=== PATIENT | female | born 2000 | race Caucasian/White ===

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

== ENCOUNTER 2021-08-21 07:14 | Emergency (ER) | payer SELFPAY ==
[2021-08-21] MEDS ORDERED: Sodium Chloride 0.9% 1,000 ML IV ONE (07:29)
[2021-08-21] MEDS ORDERED: Morphine 4 MG/ML VIAL IVPUSH ONE (07:29)
[2021-08-21] MEDS ORDERED: Ondansetron 4 MG/2 ML SDV IVPUSH ONE (07:29)
[2021-08-21] MEDS ORDERED: Ketorolac 30 MG/ML SDV IVPUSH ONE (07:29)
[2021-08-21 08:36] LABS: BLOOD UREA NITROGEN,BUN 8 mg/dL (7.0-18.0); CARBON DIOXIDE,CO2 23.3 mmol/L (21.0-32.0); CHLORIDE,CL 106 mmol/L (98-107); GLUCOSE RANDOM 98 mg/dL (74-106); POTASSIUM,K 3.5 mmol/L (3.5-5.1); SODIUM,NA 140 mmol/L (136-145)
[2021-08-21 09:35] VITALS: PULSE 57
[2021-08-21 10:08] VITALS: BP 90/49
== END 2021-08-21 10:09 | disposition home or self-care (01) ==
LOC: MW.ED 07:14
DX: N80.9 Endometriosis, unspecified (principal)
CPT/HCPCS: 36415; 80053; 81001; 81025; 85025; 96374; 96375; 99284; J1885; J2270; J2405; J7030

== ENCOUNTER 2022-09-02 12:38 | Emergency (ER) | payer SELFPAY | END 2022-09-02 13:16 | disposition left against medical advice (07) | LOC: MW.ED 12:38 | DX: Z53.21 Procedure and treatment not carried out due to patient leaving prior to being seen by health care provider (principal) ==

== ENCOUNTER 2022-09-17 06:08 | Day surgery (SDC) | payer SELFPAY ==
[2022-09-17] MEDS ORDERED: Scopolamine 1.5 MG Transdermal Patch TOP ONE (06:30)
[2022-09-17] MEDS ORDERED: Lactated Ringers 1,000 ML IV SCH (06:30)
[2022-09-17] MEDS ORDERED: Ropivacaine 0.5% 5 MG/ML 30 ML SDV ONE (07:20)
[2022-09-17] MEDS ORDERED: Famotidine 20 MG/2 ML SDV ONE (07:21)
[2022-09-17] MEDS ORDERED: propofoL 50 ML ONE (07:29)
[2022-09-17] MEDS ORDERED: fentaNYL 250 MCG/5 ML SDV ONE (07:30)
[2022-09-17] MEDS ORDERED: Propofol 200 MG/20 ML SDV ONE ×2 (07:30→09:10)
[2022-09-17] MEDS ORDERED: Albuterol 0.083% 2.5 MG/3 ML Neb Soln NEB PRN (08:17)
[2022-09-17] MEDS ORDERED: droPERidol 5 MG/2 ML SDV IVPUSH PRN (08:17)
[2022-09-17] MEDS ORDERED: Ondansetron 4 MG/2 ML SDV IVPUSH PRN (08:17)
[2022-09-17] MEDS ORDERED: Naloxone 0.4 MG/ML SDV IVPUSH PRN (08:17)
[2022-09-17] MEDS ORDERED: Morphine 2 MG/ML SYRINGE IVPUSH PRN (08:17)
[2022-09-17] MEDS ORDERED: fentaNYL 50 MCG/ML SDV IVPUSH PRN (08:17)
[2022-09-17] MEDS ORDERED: Metoclopramide 10 MG/2 ML SDV IVPUSH PRN (08:17)
[2022-09-17] MEDS ORDERED: HYDROmorphone 1 MG/ML Syringe IVPUSH PRN (08:17)
[2022-09-17] MEDS ORDERED: Ketorolac 30 MG/ML SDV ONE (08:42)
[2022-09-17] MEDS ORDERED: Sugammadex Sodium 200 MG/2 ML VIAL ONE (08:42)
[2022-09-17] MEDS ORDERED: Rocuronium Bromide 50 MG/5 ML Syringe ONE (08:42)
[2022-09-17] MEDS ORDERED: Lidocaine 2% 11 ML Jelly Filled Syringe ONE (08:42)
[2022-09-17] MEDS ORDERED: Ondansetron 4 MG/2 ML SDV ONE (08:42)
[2022-09-17] MEDS ORDERED: fentaNYL 100 MCG/2 ML SDV ONE (08:42)
[2022-09-17] MEDS ORDERED: Dexamethasone 4 MG/ML 5 ML MDV ONE (08:42)
[2022-09-17 10:40] VITALS: BP 111/72; PULSE 68
[2022-09-17] MEDS ORDERED: Acetaminophen/HYDROcodone 325-5 MG Tab PO ONE (10:45)
[2022-09-17] MEDS ORDERED: Acetaminophen/HYDROcodone 325-5 MG Tab ONE (10:49)
== END 2022-09-17 11:05 | disposition home or self-care (01) ==
LOC: MW.SDS 06:08
PROVIDERS: ATTEND Obstetrics & Gynecology
DX: N83.01 Follicular cyst of right ovary (principal); N80.00 Endometriosis of the uterus, unspecified; F17.210 Nicotine dependence, cigarettes, uncomplicated; N94.6 Dysmenorrhea, unspecified; J45.990 Exercise induced bronchospasm; D50.9 Iron deficiency anemia, unspecified; G43.009 Migraine without aura, not intractable, without status migrainosus; J40 Bronchitis, not specified as acute or chronic; K21.9 Gastro-esophageal reflux disease without esophagitis; F41.9 Anxiety disorder, unspecified; Z79.899 Other long term (current) drug therapy; Z90.89 Acquired absence of other organs
CPT/HCPCS: 58661; 81025; A9270; J0131; J1100; J1885; J2405; J2704; J2795; J3010; J3490; J7030; J7120; 00840; 64488